=== PATIENT | female | born 1940 | race Hispanic/Latino ===

== ENCOUNTER 2022-02-16 22:50 | Emergency (ER) | payer MEDICARE ==
[~2022-02-16] VITALS: Ht 162.6 cm; Wt 65.8 kg
[2022-02-16 22:55] VITALS: BP 153/60
[2022-02-16] MEDS ORDERED: TETANUS/DIPHTHERIA TOXOID [ADULT] 0.5 ML VIAL IM ONE (23:50)
[2022-02-16] MEDS ORDERED: NEOMY SULF/BACITRA/POLYMYXIN B 1 EACH PACKET TP ONE (23:59)
[2022-02-17] MEDS ORDERED: DIPH,PERTUSS(ACELL),TET VAC/PF 0.5 ML VIAL IM ONE
[2022-02-17] MEDS ORDERED: BACITRACIN 1 EACH PACKET TP ONE (00:30)
== END 2022-02-17 00:12 | disposition home or self-care (01) ==
LOC: EDH 22:50
DX: S51.802A Unspecified open wound of left forearm, initial encounter (principal); S50.812A Abrasion of left forearm, initial encounter; I10 Essential (primary) hypertension; E78.00 Pure hypercholesterolemia, unspecified; Z88.2 Allergy status to sulfonamides; W54.0XXA Bitten by dog, initial encounter; Y93.89 Activity, other specified; Y92.89 Other specified places as the place of occurrence of the external cause; Y99.8 Other external cause status
CPT/HCPCS: 90471; 90714; 90715

== ENCOUNTER → 2024-05-09 | Outpatient (CLI) | payer MEDICARE | END | disposition home or self-care (01) | LOC: RAH 14:04 | PROVIDERS: ATTEND Internal Medicine Cardiovascular Disease | DX: I34.0 Nonrheumatic mitral (valve) insufficiency (principal) | CPT/HCPCS: 93306 ==